=== PATIENT | female | born 1950 | race Caucasian/White ===

== ENCOUNTER 2023-12-09 19:03 | Emergency (ER) | payer OTHER, MEDICARE ==
[~2023-12-09] VITALS: Ht 165.1 cm; Wt 63.5 kg
== END 2023-12-09 20:00 | disposition home or self-care (01) ==
LOC: ER 19:03
DX: S61.452A Open bite of left hand, initial encounter (principal); W54.0XXA Bitten by dog, initial encounter

== ENCOUNTER 2024-02-10 11:11 | Day surgery (SDC) | payer MEDICARE, OTHER ==
[~2024-02-10] VITALS: Ht 159 cm; Wt 62.2 kg
[2024-02-10] VITALS (12 sets, daily range): BP systolic 95–126; BP diastolic 55–73
[~2024-02-10 11:11] MED LIST: AMOCLA875 PO
[2024-02-10] MEDS ORDERED: Metoclopramide HCl 5MG / ML 2ML Vial IV PRN (11:45)
[2024-02-10] MEDS ORDERED: DiphenhydrAMINE HCL 25 MG Cap PO PRN (11:45)
[2024-02-10] MEDS ORDERED: Ondansetron HCl 2 MG / ML 2ML Vial IV PRN (11:45)
[2024-02-10] MEDS ORDERED: HYDROmorphone HCl/Pf 1MG SYR IV PRN ×3 (11:45→17:48)
[2024-02-10] MEDS ORDERED: Magnesium Hydroxide Conc 10 ML UDC PO PRN (11:45)
[2024-02-10] MEDS ORDERED: Promethazine HCl 25 MG Tab PO PRN (11:50)
[2024-02-10] MEDS ORDERED: OxyCODONE HCL 5 MG TAB PO PRN ×2 (11:50)
[2024-02-10] MEDS ORDERED: Lactated Ringer's 1,000 ML IV SCH ×2 (11:50→11:55)
[2024-02-10] MEDS ORDERED: Bisacodyl 10 MG Supp PR PRN (11:50)
[2024-02-10] MEDS ORDERED: Tranexamic Acid 100 ML IV SCH (11:55)
[2024-02-10] MEDS ORDERED: Acetaminophen 500 MG Tab PO SCH ×2 (11:55→16:00)
[2024-02-10] MEDS ORDERED: Chlorhexidine Mouth Care 15 ML UDC MT SCH (11:55)
[2024-02-10] MEDS ORDERED: Ropivacaine 0.5% HCl/Pf 123.125 MG,EPINEPHrine HCL 0.25 MG,Ketorolac Tromethamine 15 MG... INFIL SCH (11:55)
[2024-02-10] MEDS ORDERED: CeFAZolin Sodium 2,000 MG in NS 100 ML IV SCH ×2 (11:55→23:00)
[2024-02-10] MEDS ORDERED: OxyCODONE HCL 10 MG TABCR PO SCH (11:55)
--- NOTE | 2024-02-10 12:56 | NUR ---
BRITANY HOLGUIN USED PER PATIENT REQUEST.
[2024-02-10] MEDS ORDERED: propofoL 40 ML IV ONE (13:26)
[2024-02-10] MEDS ORDERED: Dexamethasone Sod Phos 10 MG/ML 1ML VIAL ONE (14:43)
[2024-02-10] MEDS ORDERED: ePHEDrine Sulfate 50 MG/ML 1ML Injection ONE (14:56)
[2024-02-10] MEDS ORDERED: FentaNYL Citrate 50 MCG/ML 2 ML Injection IV PRN ×3 (15:10→15:25)
[2024-02-10] MEDS ORDERED: Ondansetron HCl 2 MG / ML 2ML Vial ONE ×2 (15:21→15:30)
[2024-02-10] MEDS ORDERED: FentaNYL Citrate 50 MCG/ML 2 ML Injection ONE (16:28)
[2024-02-10] MEDS ORDERED: Morphine Sulfate IR 15 MG Tab PO PRN (17:45)
[2024-02-10] MEDS ORDERED: Ketorolac Tromethamine 15mg Vial IV SCH (18:00)
--- NOTE | 2024-02-10 19:29 | NUR ---
SHIFT SUMMARY/ARRIVAL NOTE PT ARRIVED FROM PACU ON HER BED, AWAKE AT TOA, RESPONDS TO QUESTIONS APPROPRIATELY, ABBY WRAP OVER AQUACELL ON R KNEE WHICH IS C/D/I, DISCUSSED PLAN OF CARE WITH HER AND HER FAMILY AT BEDSIDE FOR THE EVENING. MEDICATED FOR PAIN PER EMAR. CALL LIGHT IN REACH.
[2024-02-10] MEDS ORDERED: Docusate Sodium 100 MG Cap PO SCH (21:00)
[2024-02-11 03:53] VITALS: BP 122/65
[2024-02-11 04:53] LABS: BASOPHILS ABSOLUTE AUTO 0.01 K/mm3 (0.00-0.23); BASOPHILS PERCENT AUTO 0 % (0-2); EOSINOPHILS PERCENT AUTO 0 % (0-6); Hematocrit 35.7 % (33.0-51.0); Hemoglobin 11.5 g/dL (11.5-16.0); IMMATURE GRAN ABSOLUTE AUTO 0.03 K/mm3 (0.00-0.10); IMMATURE GRAN PERCENT AUTO 0 % (0-1); LYMPHOCYTES ABSOLUTE AUTO 0.47 K/mm3 (0.84-5.20); LYMPHOCYTES PERCENT AUTO 6 % (21-46); MONOCYTES ABSOLUTE AUTO 0.27 K/mm3 (0.16-1.47); MONOCYTES PERCENT AUTO 4 % (4-13); Mean Corpuscular HGB 31.1 pg (26.0-34.0); Mean Corpuscular HGB Conc 32.2 g/dL (31.5-36.5); Mean Corpuscular Volume 97 fL (80-100); Mean Platelet Volume 11.8 fL (9.1-12.4); NEUTROPHILS ABSOLUTE AUTO 6.92 K/mm3 (1.96-9.15); NEUTROPHILS PERCENT AUTO 90 % (41-73); Platelet Count 150 K/mm3 (150-400); RDW Coefficient Variation 12.7 % (11.7-14.2); RDW Standard Deviation 44.8 fL (35.1-46.3)
[2024-02-11 05:05] LABS: Bun/Creatinine Ratio 26.4 (12.0-20.0); Calcium, Blood 8.4 mg/dL (8.5-10.1); Creatinine, Blood 0.53 mg/dL (0.40-1.00); Potassium, Blood 4.3 mmol/L (3.5-5.5)
--- NOTE | 2024-02-11 05:36 | NUR ---
SHIFT SUMMARY: SHAMA IS A&OX4. VSS, NO ACUTE EVENTS OVERNIGHT. DRESSING TO RIGHT KNEE C/D&I. SHE REPORTS ADEQUATE PAIN CONTROL WITH MEDICATIONS PER MAR. SHE IS TOLERATING PO INTAKE WELL, URINATING WITHOUT DIFFICULTY, AND USES THE CALL LIGHT APPROPRIATELY. SHE IS A STANDBY ASSIST WITH THE FWW AND GAIT BELT. POLAR PACK AND SCDs IN PLACE. SHE IS LYING IN BED WITH THE CALL LIGHT IN REACH. WILL GIVE REPORT TO DAY SHIFT RN.
[2024-02-11 07:22] VITALS: BP 124/60
[2024-02-11] MEDS ORDERED: Aspirin 81 MG Chew PO SCH (09:00)
[2024-02-11] MEDS ORDERED: ASPI81CH PO (09:34)
--- NOTE | 2024-02-11 10:43 | NUR ---
DISCHARGE SUMMARY PT A&OX4, VSS/RA, YENNY PO, VOIDING, AMB SBA FWW/GB, PAIN MANAGED, IV DC'D. DC INS PROVIDED TO PT AND 2 DAUGHTERS; REPORTED UNDERSTANDING THOSE INSTRUCTIONS, AND THAT MEDS ARE FILLED AND READY AT HOME. LEFT FLOOR VIA WC WITH BUCKLE COVERER TO GO HOME WITH DAUGHTERS WITH ALL PERSONAL POSSESSIONS INCLUDING DC INS, 2 AQUACEL DRESSINGS, POLAR JULISA.
== END 2024-02-11 10:33 | disposition home or self-care (01) ==
LOC: ORSCMMR 11:11 → ORD 12:30 → ORSCMMR 12:30 → ORD 13:45 → ORSCMMR 13:45 → SURS 17:13 → ORSCMMR 17:13 → SURS 02-11 10:33
PROVIDERS: Orthopaedic Surgery
PROC: 0SRC0JA Replacement of Right Knee Joint with Synthetic Substitute, Uncemented, Open Approach (ICD-10-PCS; principal; 2024-02-10 12:30)
PROC: 8E0Y0CZ Robotic Assisted Procedure of Lower Extremity, Open Approach (ICD-10-PCS; principal; 2024-02-10 12:30)
DX: M17.11 Unilateral primary osteoarthritis, right knee (principal)
CPT/HCPCS: 36415; 73560-RT; 80048; 85025; 97110; 97116; 97161; A9270; C1713; C1776; J0171; J0690; J0735; J1100; J1885; J2405; J2704; J2795; J3010; J7120